=== PATIENT | female | born 1995 | race Caucasian/White ===

== ENCOUNTER 2019-10-10 15:21 | Emergency (ER) | payer OTHER ==
[~2019-10-10] VITALS: Ht 149.9 cm; Wt 61.2 kg
[2019-10-10] MEDS ORDERED: TIROSINT100 MCG PO (15:31)
[2019-10-10] MEDS ORDERED: NORCO 5-325 TA1 EAC1 PO (18:30)
[2019-10-10 19:02] VITALS: BP 118/70
== END 2019-10-10 19:03 | disposition home or self-care (01) ==
LOC: M.ERS 15:21
DX: S82.62XA Displaced fracture of lateral malleolus of left fibula, initial encounter for closed fracture (principal); F17.210 Nicotine dependence, cigarettes, uncomplicated; X50.1XXA Overexertion from prolonged static or awkward postures, initial encounter; Y93.89 Activity, other specified; Y92.89 Other specified places as the place of occurrence of the external cause; Y99.8 Other external cause status

== ENCOUNTER 2021-07-05 19:19 | Emergency (ER) | payer OTHER ==
[~2021-07-05] VITALS: Ht 149.9 cm; Wt 63.5 kg
[~2021-07-05 19:19] MED LIST: NORCO 5-325 TA1 EAC1 PO; TIROSINT100 MCG PO
[2021-07-05] MEDS ORDERED: DOXYCYCLINE 10100 MG PO (21:40)
[2021-07-05 21:53] LABS: URINE BILIRUBIN NEGATIVE (Negative); URINE BLOOD TRACE (Negative); URINE CLARITY CLEAR; URINE COLOR YELLOW; URINE GLUCOSE-RANDOM NEGATIVE (Negative); URINE KETONES NEGATIVE (Negative); URINE LEUKOCYTES-REFLEX NEGATIVE (Negative); URINE NITRITE-REFLEX NEGATIVE (Negative); URINE PROTEIN NEGATIVE (Negative); URINE SPECIFIC GRAVITY >= 1.030 (1.005-1.030); URINE UROBILINOGEN 0.2 E.U./dl (0.2-1.0)
[2021-07-05 22:53] VITALS: BP 137/86
[2021-07-06] MEDS ORDERED: AMOXIL 875 MG875 M1 PO (12:46)
[2021-07-06] MEDS ORDERED: CEPHALEXIN500 MG PO (13:07)
== END 2021-07-05 22:54 | disposition home or self-care (01) ==
LOC: M.ERS 19:19
PROVIDERS: Personal Emergency Response Attendant
DX: J02.0 Streptococcal pharyngitis (principal); N89.8 Other specified noninflammatory disorders of vagina; K21.9 Gastro-esophageal reflux disease without esophagitis; F17.210 Nicotine dependence, cigarettes, uncomplicated